=== PATIENT | female | born 1955 | race Caucasian/White ===

== ENCOUNTER 2018-06-24 05:50 | Day surgery (SDC) | payer BC ==
[2018-06-24] MEDS ORDERED: TROP 1%/CYCLOPEN 1%/PHENYL 2% DROPS OPHTH ONE (05:51)
[2018-06-24] MEDS ORDERED: MIDAZOLAM INJ 2 MG/2 ML VIAL ONE (14:21)
[2018-06-24] MEDS ORDERED: PROPARACAINE 0.5% OPHTH SOL 15 ML BTTL LEFT_EYE ONE (14:30)
[2018-06-24] MEDS ORDERED: LIDOCAINE 1% 2 ML VIAL INJ ONE ×2 (14:34→14:40)
[2018-06-24] MEDS ORDERED: DEXAMETHASONE 0.1% OPHTH SOL 1 DROP LEFT_EYE ONE ×2 (14:35→14:51)
[2018-06-24] MEDS ORDERED: TOBRAMYCIN SULF 0.3 % OPHT SOL 1 DROP LEFT_EYE ONE ×2 (14:36→14:51)
[2018-06-24] MEDS ORDERED: BRIMONIDINE 0.2% OPHTH DROPS LEFT_EYE ONE ×2 (14:36→14:51)
== END 2018-06-24 15:35 | disposition home or self-care (01) ==
LOC: AMB 05:50
PROVIDERS: ATTEND Ophthalmology
DX: H25.12 Age-related nuclear cataract, left eye (principal); Z85.3 Personal history of malignant neoplasm of breast; Z79.899 Other long term (current) drug therapy
CPT/HCPCS: 00142; 66984; J2250

== ENCOUNTER → 2018-07-01 | Outpatient (CLI) | payer BC | LOC: LAB.O 16:36 | PROVIDERS: ATTEND Nurse Practitioner Family | DX: I95.89 Other hypotension (principal) ==

== ENCOUNTER 2018-07-08 05:44 | Day surgery (SDC) | payer BC ==
[2018-07-08] MEDS ORDERED: MIDAZOLAM INJ 2 MG/2 ML VIAL ONE ×2 (06:39→09:22)
[2018-07-08] MEDS ORDERED: TROP 1%/CYCLOPEN 1%/PHENYL 2% DROPS ONE (08:22)
[2018-07-08] MEDS ORDERED: PROPARACAINE 0.5% OPHTH SOL 15 ML BTTL ONE (08:22)
[2018-07-08] MEDS ORDERED: PROPARACAINE 0.5% OPHTH SOL 15 ML BTTL RIGHT_EYE ONE (09:12)
[2018-07-08] MEDS ORDERED: LIDOCAINE 1% 2 ML VIAL INJ ONE ×2 (09:18→09:20)
[2018-07-08] MEDS ORDERED: TOBRAMYCIN SULF 0.3 % OPHT SOL 1 DROP RIGHT_EYE ONE ×2 (09:19→09:37)
[2018-07-08] MEDS ORDERED: DEXAMETHASONE 0.1% OPHTH SOL 1 DROP RIGHT_EYE ONE ×2 (09:19→09:37)
[2018-07-08] MEDS ORDERED: BRIMONIDINE 0.2% OPHTH DROPS RIGHT_EYE ONE ×2 (09:20→09:37)
== END 2018-07-08 10:20 | disposition home or self-care (01) ==
LOC: AMB 05:44
PROVIDERS: ATTEND Ophthalmology
DX: H26.9 Unspecified cataract (principal); E07.9 Disorder of thyroid, unspecified; E66.9 Obesity, unspecified; F32.9 Major depressive disorder, single episode, unspecified; Z79.899 Other long term (current) drug therapy
CPT/HCPCS: 00142; 66984; J2250

== ENCOUNTER → 2018-07-11 | Outpatient (CLI) | payer BC ==
--- NOTE | 2018-07-15 16:39 | MAM ---
EXAM DESCRIPTION: 3D Screening BILATERAL : Digital Mammography. CLINICAL HISTORY: 62 years Female SCREENING . Right breast cancer and mastectomy 1996 remote family history of breast cancer.. Lifetime risk of developing breast cancer (Tyrer-Cuzick model)(%): Not calculated due to personal history of breast cancer. COMPARISON: None available. No prior reports available. TECHNIQUE: Left CC and MLO projection full-field images, with Conrad Implant Displacement digital tomosynthesis mammographic technique. Left 2-D digital full-field images, MLO and CC projections, non-displaced. CAD left digital 2-D full-field MLO images. CAD not available for tomosynthesis or 2-D images. FINDINGS: Left breast parenchymal density pattern is: Scattered areas of fibroglandular density. No skin thickening or nipple retraction. Multiple small microcalcifications. Retroareolar secretory calcifications. Axillary lymph node. Retroglandular saline implant. Capsule appears intact where seen. IMPRESSION: Benign exam. BIRAD CATEGORY: 2 BENIGN FINDINGS. RECOMMENDATIONS: FOLLOW UP: Routine digital left breast mammographic screening, one year interval from July 2018. Written communication explaining the IMPRESSION and follow-up, will be mailed to the patient and referring health care provider. According to the [employer], yearly mammograms are recommended starting at age 40 and continuing as long as a woman is in good health. Any breast change noted on a breast self-exam should be reported promptly to the patient's healthcare provider. Breast MRI is recommended for women with an approximately 20-25% or greater lifetime risk of breast cancer, including women with a strong family history of breast or ovarian cancer and women who have been treated for Hodgkin's disease. A negative mammographic report should not delay tissue diagnosis in patients with significant clinical history or physical findings. Extremely dense breast tissue limits the sensitivity of digital mammography. Electronically signed by: Long Colvni MD 07/15/2018 4:38 PM [facility]
== END ==
LOC: MAMMO 13:00
PROVIDERS: ATTEND Nurse Practitioner Family
DX: Z12.31 Encounter for screening mammogram for malignant neoplasm of breast (principal)

== ENCOUNTER → 2019-08-04 | Outpatient (CLI) | payer MEDICARE ==
--- NOTE | 2019-08-04 11:56 | RAD ---
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 Genu varum Lateral femorotibial and patellofemoral osteoarthritis manifest primarily by joint line osteophytes No joint effusion or intra-articular loose body. No fracture. Bone island in the distal femur Electronically signed by: Daniel Soto MD 08/04/2019 11:55 AM [facility]
--- NOTE | 2019-08-04 12:22 | RAD ---
EXAM DESCRIPTION: Pelvis CLINICAL HISTORY: 64 years Female, HIP PAIN COMPARISON: None. TECHNIQUE: AP radiograph of the pelvis was performed. FINDINGS: The pelvic ring appears grossly intact on this single AP radiograph. No acute fracture or dislocation. Bilateral sacroiliac joints appear normal. Mild bilateral hip osteoarthritis. The visualized lumbo-sacral spine demonstrates mild degenerative changes. Enthesopathy of the bilateral greater trochanters and iliac crest. IMPRESSION: Single AP radiograph of the pelvis demonstrates grossly intact pelvic ring. Mild bilateral hip osteoarthritis. Enthesopathy of the bilateral greater trochanters and iliac crest. Electronically signed by: Sylwia Jauregui MD 08/04/2019 12:20 PM [facility]
--- NOTE | 2019-08-04 12:23 | RAD ---
EXAM DESCRIPTION: Knee,Left Complete CLINICAL HISTORY: 64 years Female, PAIN IN LEFT KNEE TECHNIQUE: 4 views of the left knee were performed. COMPARISON: None available. FINDINGS: The visualized bones appear poorly mineralized. No acute fracture or dislocation. Moderate to severe medial tibiofemoral joint space narrowing. The soft tissues appear grossly unremarkable. IMPRESSION: Moderate to severe medial tibiofemoral joint space narrowing. Electronically signed by: Sylwia Jauregui MD 08/04/2019 12:21 PM [facility]
== END ==
LOC: RAD 10:22
PROVIDERS: ATTEND Orthopaedic Surgery
DX: M16.0 Bilateral primary osteoarthritis of hip (principal); M17.0 Bilateral primary osteoarthritis of knee; M89.8X5 Other specified disorders of bone, thigh; M76.891 Other specified enthesopathies of right lower limb, excluding foot; M76.892 Other specified enthesopathies of left lower limb, excluding foot

== ENCOUNTER → 2019-08-07 | Outpatient (CLI) | payer MEDICARE ==
--- NOTE | 2019-08-08 15:59 | MAM ---
EXAM DESCRIPTION: 3D Screening BILATERAL : Digital Mammography. CLINICAL HISTORY: 64 years Female SCREENING personal history of right breast cancer in 1996 with mastectomy. Remote family history of breast cancer. Menarche age 11. Childbirth age 20. Menopause age 36. No HRT. Lifetime risk of developing breast cancer (Tyrer-Cuzick model)(%): Not calculated due to personal history of breast cancer. COMPARISON: 2-D digital screening left breast mammography July 2018. TECHNIQUE: Left breast CC and MLO projection full-field images, with Conrad Implant Displacement digital tomosynthesis mammographic technique. Left breast 2-D digital full-field images, MLO and CC projections, non-displaced. Left breast digital 2-D full-field MLO images. With implant displacement. CAD not available for tomosynthesis or 2-D images. FINDINGS: The breast parenchymal density pattern is: Scattered areas of fibroglandular density. No skin thickening or nipple retraction. Retro-muscular a breast implant. Capsule appears intact where seen. Minimal microcalcifications. Secretory calcifications. Left axillary lymph node. No new focal, stellate mass or density, focal asymmetry , and no suspicious microcalcifications left breast. Stable mammograms compared to prior study. IMPRESSION: Benign exam. BIRAD CATEGORY: 2 BENIGN FINDINGS. RECOMMENDATIONS: FOLLOW UP: Routine digital left breast mammographic screening, one year interval from August 2019. Written communication explaining the IMPRESSION and follow-up, will be mailed to the patient and referring health care provider. According to the [employer], yearly mammograms are recommended starting at age 40 and continuing as long as a woman is in good health. Any breast change noted on a breast self-exam should be reported promptly to the patient's healthcare provider. Breast MRI is recommended for women with an approximately 20-25% or greater lifetime risk of breast cancer, including women with a strong family history of breast or ovarian cancer and women who have been treated for Hodgkin's disease. A negative mammographic report should not delay tissue diagnosis in patients with significant clinical history or physical findings. Extremely dense breast tissue limits the sensitivity of digital mammography. Electronically signed by: Long Colvin MD 08/08/2019 3:57 PM [facility]
== END ==
LOC: MAMMO 11:30
PROVIDERS: ATTEND Nurse Practitioner Family
DX: Z12.31 Encounter for screening mammogram for malignant neoplasm of breast (principal)